=== PATIENT | female | born 1940 | race Caucasian/White ===

== ENCOUNTER → 2019-09-18 15:05 | Outpatient (CLI) | payer MEDICARE, SELFPAY ==
--- NOTE | ~2019-09-18 | MR_ITS ---
EXAMINATION: MR lumbar spine [facility] EXAM DATE: 09/18/2019 15:58 INDICATION: Low back pain, bilateral leg pain, numbness, right side worse. TECHNIQUE: Multi-sequential, multiplanar MR images of the lumbar spine were obtained without contrast . Sagittal T1, T2, T2 fat saturation images. Axial T2 weighted images. Comparison is made to prior examination from 03/14/2017. FINDINGS: L5 and S1 segments are fused in grade 1 anterolisthesis. There is 7 mm anterolisthesis L4 o n L5, 3 mm retrolisthesis L3 on L4 and L2 on L3, 4 mm retrolisthesis L1 on L2, 3 mm anterolisthesis T 11 on T12. There is mild thoracolumbar scoliosis. Moderate to severe disc disease T11-L4, moderate at L4-5. The conus medullaris terminates at the T12 level and has normal signal intensity and morpholog y. Paraspinal soft tissue is unremarkable. Level by level evaluation: T11-12: There is a moderate to large diffuse disc bulge. Facet arthropathy: Moderate to severe right, moderate left. Neural foraminal stenosis: Moderate right, mild to moderate left. Central canal stenosis: Moderate. T12-L1: There is a moderate to large diffuse disc bulge. Facet arthropathy: Mild to moderate. Neural foraminal stenosis: Moderate left, mild right. Central canal stenosis: Mild to moderate. L1-L2: There is a mild to moderate diffuse disc bulge. Facet arthropathy: Mild to moderate. Neural foraminal stenosis: Moderate to severe left, mild to moderate right. Central canal stenosis: Mild to moderate. L2-L3: There is a moderate diffuse disc bulge. Facet arthropathy: Moderate. Neural foraminal stenosis: Moderate bilateral. Central canal stenosis: Mild, probable old right hemilaminectomy. L3-L4: There is a moderate diffuse disc bulge. Facet arthropathy: Moderate to severe. Neural foraminal stenosis: Severe right, moderate left. Central canal stenosis: Mild to moderate, probable old right hemilaminectomy. L4-L5: There is a moderate diffuse disc bulge. Facet arthropathy: Severe. Neural foraminal stenosis: Moderate bilateral, left greater than right. Central canal stenosis: Moderate. L5-S1: Vertebral bodies are fused Facet arthropathy: Mild to moderate. Neural foraminal stenosis: Moderate left, mild to moderate right. Central canal stenosis: Mild. There is slight interval increase in the lumbar subluxations, but otherwise difficult to appreciate a ny interval change compared to 2017 exam. IMPRESSION: Advanced cervical spondylosis. Reviewed, dictated and finalized at location A. GRATION DIRECTOR
== END ==
PROVIDERS: Visit Provider Nurse Practitioner Family
DX: M47.26 Other spondylosis with radiculopathy, lumbar region (principal)
CPT/HCPCS: 72148

== ENCOUNTER → 2020-10-28 12:05 | Outpatient (CLI) | payer MEDICARE, SELFPAY ==
--- NOTE | ~2020-10-28 | MM_ITS ---
EXAMINATION: MM screening [facility] BI w kacey HISTORY: Screening TECHNIQUE: Craniocaudal and mediolateral oblique 3-D tomosynthesis images were obtained and synthetic 2-D images were generated. CAD analysis was submitted and interpreted. COMPARISON: Comparison to multiple prior studies sequentially, with oldest reviewed study dated 04/16. BREAST PARENCHYMAL COMPOSITION: There are scattered areas of fibroglandular density. FINDINGS: There is no evidence of suspicious mass, calcification, or architectural distortion to sugg est malignancy in either breast. There has been no suspicious interval change. IMPRESSION: 1. No mammographic evidence of malignancy. 2. Recommend routine screening mammography in one year. BI-RADS Category 1: Negative Reviewed, dictated and finalized at location A.
--- NOTE | ~2020-10-28 | DEXA_ITS ---
Bone Density Report Name: Amberly Faust Age: 80 Sex: Female Ethnicity: White Date of : 1940 Indication: postmenopausal; screening for osteoporosis; height loss; prior fracture; Referring Provider: MYLA MCCLENDON Study: Bone densitometry was performed. Exam Date: October 28, 2020 Accession number: [id number] Bone Density: Region BMD T-score Z-score Classification AP Spine (L1-L4) 1.013 -0.3 2.3 Normal Femoral Neck (Left) 0.667 -1.6 0.6 Osteopenia Total Hip (Left) 0.962 0.2 2.1 Normal Femoral Neck (Right) 0.583 -2.4 -0.2 Osteopenia Total Hip (Right) 0.895 -0.4 1.6 Normal Total Hip Mean 0.929 -0.1 1.9 Normal World Health Organization criteria for BMD impression classify patients as: Normal (T-score at or above -1.0), Osteopenia (T-score between -1.0 and -2.5), or Osteoporosis (T-score at or below -2.5). 10-year Fracture Risk(1): Major Osteoporotic Fracture 22% Hip Fracture 6.1% Reported Risk Factors: [place] (), Neck BMD=0.583, BMI=38.9, previous fracture (1) FRAX(R) Version 3.08. Fracture probability calculated for an untreated patient. Fracture probability may be lower if the patient has received treatment. Previous Exams: Region Exam Age BMD T-score BMD Change BMD Change Date g/cm2 vs Baseline vs Previous AP Spine(L1-L4) 10/28/2020 80 1.013 -0.3 0.213* 0.073* 03/01/2017 76 0.940 -1.0 0.139* 0.099* 05/13/2012 71 0.841 -1.9 0.040* 0.018 05/12/2010 69 0.823 -2.0 0.022 0.022 05/07/2008 67 0.801 -2.2 Total Hip(Left) 10/28/2020 80 0.962 0.2 -0.061* 0.045* 03/01/2017 76 0.917 -0.2 -0.107* -0.069* 05/13/2012 71 0.986 0.4 -0.038* -0.003 05/12/2010 69 0.989 0.4 -0.034* -0.034* 05/07/2008 67 1.023 0.7 Total Hip(Right) 10/28/2020 80 0.895 -0.4 -0.107* 0.017 03/01/2017 76 0.878 -0.5 -0.124* -0.164* 05/13/2012 71 1.042 0.8 0.040* 0.071* 05/12/2010 69 0.971 0.2 -0.031* -0.031* 05/07/2008 67 1.002 0.5 *Denotes significance at 95% confidence level, LSC for AP Spine = 0.022 g/cm2, LSC for Total Hip = 0.027 g/cm2 Clinical Information Provided by Patient: Has had a low trauma fracture Has used the following medications: Vitamin D, Calcium Patient maximum height was 62 Menopause Age: 49 No regular weight bearin
== END ==
PROVIDERS: PCP Family Medicine; Visit Provider Family Medicine
DX: Z12.31 Encounter for screening mammogram for malignant neoplasm of breast (principal); Z78.0 Asymptomatic menopausal state; M85.89 Other specified disorders of bone density and structure, multiple sites
CPT/HCPCS: 77063; 77067; 77080

== ENCOUNTER 2020-11-06 11:24 | Emergency (ER) | payer MEDICARE, SELFPAY ==
--- NOTE | ~2020-11-06 | US_ITS ---
EXAMINATION: US venous doppler [facility] DATE: 11/06/2020 13:47 INDICATION: Lower limb swelling. TECHNIQUE: Grayscale ultrasound images without and with compression and Doppler ultrasound images of the bilateral lower extremity veins were obtained. COMPARISON: Ultrasound 04/09/2016 FINDINGS: The visualized portions of right common femoral vein, profunda (deep) femoral vein, femoral vein, pop liteal vein, peroneal veins, posterior tibial veins, and greater saphenous vein outflow are patent. The visualized portions of left common femoral vein, profunda femoral vein, femoral vein, popliteal v ein, peroneal veins, posterior tibial veins, and greater saphenous vein outflow are patent. IMPRESSION: 1. No deep venous thrombosis. Reviewed, dictated and finalized at location A.
--- NOTE | ~2020-11-06 | XR_ITS ---
EXAMINATION: XR chest 1V DATE: 11/06/2020 12:40 INDICATION: Shortness of breath. TECHNIQUE: A single frontal view of the chest was obtained. COMPARISON: Chest 2 views 06/01/2019 FINDINGS: There is mild atelectasis at the lung bases. No pleural effusion or pneumothorax. The heart size is normal. IMPRESSION: 1. Mild atelectasis at the lung bases. Reviewed, dictated and finalized at location A.
--- NOTE | ~2020-11-06 | XR_ITS ---
EXAMINATION: XR shoulder LT min 2V DATE: 11/06/2020 12:39 INDICATION: Left shoulder pain. TECHNIQUE: 4 views of left shoulder were obtained. COMPARISON: None. FINDINGS: There is superior subluxation of humeral head with respect to glenoid with narrowing of the subacromial space, consistent with rotator cuff tear. No fracture. There is moderate osteoarthritis of glenohumeral joint and mild osteoarthritis of acromioclavicular joint. IMPRESSION: 1. Polyarticular osteoarthritis. 2. Left rotator cuff tear. Reviewed, dictated and finalized at location A.
--- NOTE | ~2020-11-06 | CT_ITS ---
EXAMINATION: CTA chest PE protocol DATE: 11/06/2020 13:29 INDICATION: Left posterior back pain. TECHNIQUE: Computed tomography angiography (CTA) of the chest was performed with 100 mL Omnipaque-350 intravenous contrast timed to evaluate the pulmonary arteries. Coronal maximum intensity projection 3D-reconstructions were created by the technologist. Automated exposure control and iterative reconst ruction technique were employed. The dose-length product was 719.18 mGy-cm. COMPARISON: CT abdomen and pelvis 04/30/2016 FINDINGS: There is mild elevation of right hemidiaphragm. There is mild atelectasis in right middle l obe and lingula. No pleural effusion. No pleural effusion. The heart size is normal. No pericardial e ffusion. There is no pulmonary embolus. There is severe thoracic spondylosis. IMPRESSION: 1. No pulmonary embolus. Reviewed, dictated and finalized at location A. IMPRESSION: 1. No pulmonary embolus.
[2020-11-06 11:29] VITALS: BP 168/87; PULSE 106; RESP 18; TEMP 36.5; O2SAT 97
--- NOTE | 2020-11-06 11:46 | ED.GENADULT ---
HPI - General Adult General Chief complaint: Extremity Injury, Upper Stated complaint: left arm and back pain with SOB Time Seen by Provider: 11/06/20 11:25 Source: patient Mode of arrival: ambulatory Limitations: no limitations History of Present Illness HPI narrative: This is a 80 year old female with history of hypertension, chronic low back pain and neuropathy who presents for evaluation left upper back pain. Patient states she fell on Saturday, and she caught her fall using her left arm. She denies left upper back pain on Saturday. Her pain is worse with movement of her arm and laying flat. She states she is unable to sleep in her bed since Saturday due to her pain. She has noticed that both her feet have been swollen since yesterday. She has intermittent shortness of breath because pain is worse with breathing as well. She denies abdominal pain, nausea or vomiting. She denies arm numbness or weakness. She took gabapentin prior to coming and she states this helped her pain. Pain is currently 5/10. She denies hitting her head during fall or LOC. She also denies neck pain, chest pain. Related Data Home Medications Medication Instructions Recorded Confirmed duloxetine 60 mg capsule,delayed 60 mg PO DAILY 06/01/19 07/18/20 release gabapentin 600 mg tablet 600 mg PO TID 06/01/19 07/18/20 diclofenac sodium 50 mg 50 mg PO BID 05/16/20 07/18/20 tablet,delayed release Allergies Allergy/AdvReac Type Severity Reaction Status Date / Time sulfamethizole Allergy Unknown unknown Verified 11/06/20 11:33 Review of Systems Review of Systems: All systems reviewed & are unremarkable except as noted in HPI and below PMFSH Past Medical History Medical History Hypertension Mixed hyperlipidemia Normal colonoscopy (~2008) Osteopenia of spine Spinal stenosis, lumbar Vitamin B12 deficiency Vitamin D deficiency Surgical History Surgical History History of appendectomy Family History Family History Mother Hypertension Family history of elevated blood lipids Family history of diabetes mellitus in first degree relative Social History Social History Smoking status: Never smoker Second hand tobacco smoke exposure: No Alcohol intake: never Gender identity (if verbalized by the patient): Female Exam Const: General: no acute distress and alert Orientation/consciousness: patient oriented x3 HENMT: Head: normocephalic and atraumatic Face and sinus: face symmetric Eyes: EOM: EOMs intact bilaterally Neck: Neck: normal visual inspection Chest: Chest palpation & inspection: normal inspection of the chest and abnormal inspection of the chest Resp: Effort & Inspection: normal respiratory effort and no retractions Auscultation: clear to auscultation bilaterally Cardio: Rate: regular rate Rhythm: regular rhythm Heart sounds: no murmurs Other: palpable bilateral radial pulses GI: GI Palp: Yes Soft to palpation, No Tenderness to palpation present (GI) and No Guarding due to palpation present (GI) Auscultation: normal bowel sounds Back/Spine/Pelvis: Cervical Spine: No Cervical spine tenderness Thoracic/Lumbar Spine: No thoracic spinal tenderness Skin: General skin exam: normal color Rashes: no rashes Neuro: General: patient oriented x3, moves all extremities and CN's II-XI intact bilaterally Extrem: General: normal to inspection Psych: Mental Status: mental status grossly normal Affect: normal affect Course Reevaluation(s) Reevaluation #1: I have discussed with patient xray showing rotator cuff tear. She states sees Dr. Castillo, and she has had issues with both shoulders. It is unclear if this rotator cuff tear is new. She will see Dr. Castillo. I Discussed evaluation and
--- NOTE | 2020-11-06 11:55 | ECG_ITS ---
Measurements Intervals [place] Rate: 102 P: 50 TX: 207 QRS: 20 QRSD: 122 T: -17 QT: 342 QTc: 446 Interpretive Statements SINUS TACHYCARDIA BORDERLINE AV CONDUCTION DELAY RIGHT BUNDLE BRANCH BLOCK MINIMAL Q WAVES- INFERIOR LEADS BASELINE ARTIFACT- II, III, AVR, AVL, AVF, V5-V6 ABNORMAL ECG Electronically Signed On 11-06-2020 12:26:06 CDT by Rhys Arango D.O.
[2020-11-06 11:57] LABS: Basophils Percent Auto 0.3 % (0.2-1.2); Eosinophils Absolute Auto 0.3 K/mm3 (0-0.3); Hematocrit 39.1 % (37.0-47.0); Hemoglobin 12.1 g/dL (12.0-15.0); Immature Granulocyte Absolute 0.04 K/mm3 (0.00-0.031); Immature Granulocyte Percent A 0.6 % (0-0.5); Lymphocytes Absolute Auto 1.23 K/mm3 (0.9-3.2); Lymphocytes Percent Auto 18.1 % (18.3-44.2); Mean Corpuscular HGB Conc 30.9 g/dl (32-36); Mean Corpuscular Hemoglobin 29.1 pg (26-34); Mean Platelet Volume 9.6 fl (7.4-10.4); Monocytes Absolute Auto 0.6 K/mm3 (0.1-0.6); Monocytes Percent Auto 9.4 % (2.6-8.5); Neutrophils Absolute Auto 4.6 K/mm3 (1.3-6.7); Neutrophils Percent Auto 67.6 % (45.5-73.1); Platelet Count Result 271 k/mm3 (150-375); Red Blood Count 4.16 M/mm3 (4.2-5.4); Red Cell Distribution Width 13.1 % (11.5-14.5); White Blood Count 6.8 K/mm3 (4.5-10.0)
[2020-11-06 12:07] LABS: Alanine Aminotransferase 21 U/L (4-35); Albumin Level 4.5 g/dL (3.5-5.1); Alkaline Phosphatase 124 U/L (38-126); Anion Gap 4 mmol/L (8-16); Aspartate Amino Transferase 30 U/L (14-36); Bilirubin,Total 0.2 mg/dL (0.2-1.3); Blood Urea Nitrogen 21 mg/dL (7-17); Calcium 9.3 mg/dL (8.4-10.2); Carbon Dioxide 31 mmol/L (22-30); Chloride 103 mmol/L (98-107); Estimated CRCL calculation 58 ml/min; Estimated Glomerular Filt Rate > 60; Glucose 130 mg/dL (65-105); Potassium 4.1 mmol/L (3.4-5.0); Sodium 138 mmol/L (137-145)
[2020-11-06 12:08] LABS: INR 0.9; Prothrombin Time 12.5 Seconds (11.1-14.7)
[2020-11-06 12:09] LABS: Partial Thromboplastin Time 26.3 SECONDS (22.3-36.8)
[2020-11-06 12:11] LABS: D Dimer 0.52 ug/mL (<0.48)
[2020-11-06 12:18] LABS: Alveolar/Arterial O2 Gradient 23.2 mmHg; Base Excess ABG -1.1 mEq/l (+/-2.0); Carboxyhemoglobin 0.5 % THb (0-2.0); Fractional Inspired Oxygen 21 %; HCO3 ABG 24.6 mEq/l (22.0-26.0); Methemoglobin ABG 0.1 %THb (0-1.5); Oxygen Content ABG 16.6 %vol (16.0-22.0); Oxygen Saturation ABG 93.9 % (95.0-100.0); Oxyhemoglobin 93.5 % THb (90.0-100.0); PO2 ABG 72.6 mmHg (80.0-100.0); PO2 FiO2 Ratio Arterial Blood 3.46 %; Reduced Hemoglobin 5.9 %THb (0-5.0); Total Hemoglobin 12.6 g/dL (12.0-18.0); pH ABG 7.355 (7.350-7.450)
[2020-11-06 12:19] LABS: Device ROOM AIR; NT Pro B Type Natriuretic Pept 54 pg/mL (5-100); Site Drawn RIGHT BRACHIAL; Troponin I < 0.012 ng/mL (0.000-0.034)
[2020-11-06 13:52] VITALS: BP 125/68; PULSE 108; RESP 19; O2SAT 98
[2020-11-06 14:24] VITALS: BP 137/84; PULSE 108; RESP 22; O2SAT 98
== END 2020-11-06 14:36 | disposition home or self-care (01) ==
PROVIDERS: Emergency Provider General Practice; PCP Family Medicine
DX: S46.002A Unspecified injury of muscle(s) and tendon(s) of the rotator cuff of left shoulder, initial encounter (principal); R60.0 Localized edema; R06.00 Dyspnea, unspecified; I10 Essential (primary) hypertension; E78.2 Mixed hyperlipidemia; E53.8 Deficiency of other specified B group vitamins; E55.9 Vitamin D deficiency, unspecified; M85.88 Other specified disorders of bone density and structure, other site; R00.0 Tachycardia, unspecified; I45.10 Unspecified right bundle-branch block; R94.31 Abnormal electrocardiogram [ECG] [EKG]; M19.012 Primary osteoarthritis, left shoulder; R06.02 Shortness of breath; W19.XXXA Unspecified fall, initial encounter
CPT/HCPCS: 36415; 36600; 71045; 71275; 73030; 80053; 82375; 82805; 83050; 83880; 84484; 85025; 85380; 85610; 85730; 93005; 93970; 99284; A4565; Q9967

== ENCOUNTER 2021-02-16 08:59 | Outpatient (CLI) | payer MEDICARE, SELFPAY ==
--- NOTE | 2021-03-14 18:07 | WPDSLEEPSTUD ---
Sleep Study Date of Study: 02/16/21 Ordering Provider: Vanesa Carpenter MD Interpreting Physician: Latoya Sanderson MD Sleep Study Type: Split Polysomnogram Height: 1.56 m Weight: 88.451 kg Body Mass Index: 36.2 Neck Circumference (inches): 17 Coffey: 13 Reason for Sleep Study Hypersomnia * home sleep test 01/25/2021 using Tito with AHI 9.8, 44% centrals, 38% obstructive and 7% mixed, now presents for further treatment Sleep History Amberly Faust is a 80 year old female with a home sleep test January 25 showing mild sleep apnea mainly central events with desaturation to 86%. She is chronically sleepy and does not feel rested in the morning. She falls asleep quickly and falls asleep while watching TV. She estimates 8 hours of sleep at night and a 2 hour nap during the day. She was referred by Dr Carpenter for these symptoms. She rarely snores and rarely awakens at night with heartburn, belching or coughing. She does not snore loudly. She does not awaken from sleep feeling short of breath. She occasionally has trouble sleeping with a cold. She never gasp for breath at night or has breathing problems at night reported to her by others. She occasionally sweats excessively at night. She does not notice her heart pounding or beating irregularly at night. She frequently falls asleep during the day, occasionally involuntarily, never while driving. She does not have loss of muscle tone with strong emotion or daytime difficulties due to excessive sleepiness. She does not feel paralyzed on waking or falling asleep and does not have vivid dreamlike scenes upon awakening or falling asleep. She does not feel afraid to go to sleep. She does not have nightmares. She frequently remembers her dreams. She rarely has racing thoughts, feelings of sadness, depression or anxiety. She does not have muscular tension. She does not notice parts of her body jerking. She does not kick at night. She frequently has crawling aching feelings in her legs. She occasionally has leg pain at night. She denies morning jaw pain. She frequently grinds her teeth at night. She constantly is bothered by pain during the day, occasionally awakened by pain at night. She frequently wakes up feeling stiff in the morning, occasionally with sore achy muscles occasionally pain in the neck and spine. She takes naps. A short nap may be refreshing. Normal bedtime is 11:00 p.m. falling asleep within 10 minutes, waking twice at night to urinate, and she returns to sleep within 10 minutes. She wakes the morning at 8:30 a.m.. She estimates getting 8 or 9 hours of sleep at night. She always awakens feeling refreshed. Her weekend schedule is close to the same, goes to bed at 11:30 p.m. and wakes at 7:00 a.m.. Habits: Never smoker, 2 cups of caffeine a day; no recreational drugs or alcohol PMFSH Past Medical History Medical History (Updated 03/15/21 @ 13:34 by Latoya Sanderson MD) Chronic renal insufficiency, stage III (moderate) Edema Hypertension Left shoulder pain Mixed hyperlipidemia Normal colonoscopy (~2008) Osteopenia of spine Spinal stenosis, lumbar Vitamin B12 deficiency Vitamin D deficiency Surgical History Surgical History History of appendectomy Family History Family History Mother Hypertension Family history of elevated blood lipids Family history of diabetes mellitus in first degree relative Social History Social History Second hand tobacco smoke exposure: No Alcohol intake: never Gender identity (if verbalized by the patient): Female Spiritual care concerns: Yes ( Orthodoxy) Agree to blood products: No Medications Home Medications Medication Instructions Recorded Confirmed Type duloxetine 60 mg capsule,delayed 60 mg PO DAILY 06/01/19 11/24/20 History release
[2021-03-15 13:24] VITALS: BMI 36.2
== END 2021-02-17 06:17 | disposition home or self-care (01) ==
LOC: ANHCSM 09:01
PROVIDERS: PCP Family Medicine; Visit Provider Family Medicine
DX: G47.30 Sleep apnea, unspecified (principal); G47.33 Obstructive sleep apnea (adult) (pediatric); G47.61 Periodic limb movement disorder
CPT/HCPCS: 95811

== ENCOUNTER 2021-03-09 12:39 | Emergency (ER) | payer MEDICARE, SELFPAY ==
--- NOTE | ~2021-03-09 | XR_ITS ---
EXAMINATION: XR ribs RT 2V w CXR 2V EXAM DATE: 03/09/2021 13:20 INDICATION: Fall, pain under right breast with inspiration. TECHNIQUE: Frontal projection of the upper right ribs, frontal projection of the lower right ribs, ob lique projection of the right ribs, frontal and lateral chest x-ray(s) for interpretation. Comparison is made to prior examination from 11/06/2020. FINDINGS: There are no displaced acute right rib fractures identified. There is no soft tissue abno rmality seen. No confluent consolidation, pneumothorax or pleural effusion suspected. Cardiomediastin al silhouette is normal. 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 Mild to moderate thoracolumbar scoliosis. IMPRESSION: No displaced right rib fractures. Reviewed, dictated and finalized at location A.
[2021-03-09 12:40] VITALS: BP 165/101; PULSE 98; RESP 16; TEMP 36.6; O2SAT 100
--- NOTE | 2021-03-09 13:43 | ED.FALL ---
HPI - Fall General Chief Complaint: Fall Stated Complaint: Fall, Right Ribs Time Seen by Provider: 03/09/21 13:17 History of Present Illness HPI Narrative: This is a 80 year old female that presents to the ER after a fall 3 days ago. Reports she was bending over to reach her garden hose and lost her balance. She fell onto her right side. Since she has had right-sided rib pain. Worse with movement and deep breathing. Denies prodromal symptoms, hitting her head, loss of consciousness, other injuries, fever, cough or shortness of breath. Related Data Home Medications Medication Instructions Recorded Confirmed duloxetine 60 mg capsule,delayed 60 mg PO DAILY 06/01/19 11/24/20 release gabapentin 600 mg tablet 600 mg PO TID 06/01/19 11/24/20 acetaminophen 500 mg tablet 500 mg PO Q6H PRN 11/24/20 11/24/20 diclofenac sodium PO 03/09/21 Allergies Allergy/AdvReac Type Severity Reaction Status Date / Time sulfamethizole Allergy Unknown unknown Verified 03/09/21 12:55 Review of Systems Review of Systems: CONSTITUTIONAL: Denies fever EYES: Denies visual changes CARDIOVASCULAR: Reports chest/rib pain RESPIRATORY: Denies cough or dyspnea. GASTROINTESTINAL: Denies vomiting MUSCULOSKELETAL: Reports myalgia. NEUROLOGIC: Denies numbness, or weakness. All systems reviewed & are unremarkable except as noted in HPI and below PMFSH Past Medical History Medical History (Updated 03/09/21 @ 14:34 by Brina Teague PA-C) Chronic renal insufficiency, stage III (moderate) Edema Hypertension Left shoulder pain Mixed hyperlipidemia Normal colonoscopy (~2008) Osteopenia of spine Spinal stenosis, lumbar Vitamin B12 deficiency Vitamin D deficiency Surgical History Surgical History History of appendectomy Family History Family History Mother Hypertension Family history of elevated blood lipids Family history of diabetes mellitus in first degree relative Social History Social History Second hand tobacco smoke exposure: No Alcohol intake: never Gender identity (if verbalized by the patient): Female Spiritual care concerns: Yes ( Spiritism) Agree to blood products: No Exam Narrative: GENERAL: Elderly, well-nourished, and in no acute distress. HEAD: Normocephalic, atraumatic. EYES: PERRLA and EOMI. ENT: Nares clear, no rhinorrhea or epistaxis. Mucous membranes moist. Oropharynx without tonsillar hypertrophy exudate or other lesions. Bilateral TMs pearly steele non-bulging NECK: Supple. No adenopathy or masses. No midline cervical spine tenderness CHEST: Clear to auscultation. No respiratory distress. No wheezes rales or rhonchi. Right, anterior chest wall tenderness HEART: Regular rate and rhythm. No murmur heard. Normal peripheral pulses. BACK: No midline thoracic or lumbar spine tenderness EXTREMITIES: Normal range of motion. No edema or obvious deformity. SKIN: Warm, dry, no rash. NEURO: No focal deficits. Alert and oriented x3. Cranial nerves II through XII grossly intact PSYCH: Normal mood and affect Course Vital Signs Vital signs: Vital Signs Temperature 97.9 F 03/09/21 12:40 Pulse Rate 98 03/09/21 12:40 Respiratory Rate 16 03/09/21 12:40 Blood Pressure 165/101 H 03/09/21 12:40 Pulse Oximetry 100 03/09/21 12:40 Temperature 97.9 F 03/09/21 12:40 Pulse Rate 98 03/09/21 12:40 Respiratory Rate 16 03/09/21 12:40 Blood Pressure 165/101 H 03/09/21 12:40 Pulse Oximetry 100 03/09/21 12:40 MDM - Fall MDM Narrative Medical decision making narrative: Patient presents to the emergency department after a ground-level fall 3 days ago with right-sided rib pain. She is neurologically intact. Denies prodromal symptoms, hitting her head, loss of consciousness, or other injuries. Able to ambulate with a steady
== END 2021-03-09 14:45 | disposition home or self-care (01) ==
PROVIDERS: Emergency Provider Emergency Medicine; PCP Family Medicine
DX: S20.211A Contusion of right front wall of thorax, initial encounter (principal); I12.9 Hypertensive chronic kidney disease with stage 1 through stage 4 chronic kidney disease, or unspecified chronic kidney disease; N18.30 Chronic kidney disease, stage 3 unspecified; E78.2 Mixed hyperlipidemia; M85.88 Other specified disorders of bone density and structure, other site; E53.8 Deficiency of other specified B group vitamins; E55.9 Vitamin D deficiency, unspecified; W18.39XA Other fall on same level, initial encounter
CPT/HCPCS: 71046; 71100; 99283

== ENCOUNTER → 2021-08-02 09:09 | Outpatient (CLI) | payer MEDICARE, SELFPAY ==
[2021-08-02 13:45] LABS: Influenza A QL RT-PCR Negative (Negative); Influenza B QL RT-PCR Negative (Negative); SARS-CoV-2 RNA PCR Positive
== END ==
PROVIDERS: PCP Family Medicine; Visit Provider Family Medicine
DX: U07.1 COVID-19 (principal); J06.9 Acute upper respiratory infection, unspecified
CPT/HCPCS: 87502; C9803; U0003; U0005

== ENCOUNTER → 2021-10-10 12:11 | Outpatient (CLI) | payer MEDICARE, SELFPAY ==
--- NOTE | ~2021-10-10 | XR_ITS ---
EXAMINATION: XR shoulder LT min 2V DATE: 10/10/2021 12:32 INDICATION: Left shoulder pain. TECHNIQUE: 4 views of left shoulder were obtained. COMPARISON: Left shoulder radiographs 11/06/2020 FINDINGS: There is chronic superior subluxation of humeral head with narrowing of the subacromial spa ce, consistent with rotator cuff tear. There is severe osteoarthritis of glenohumeral joint and mild osteoarthritis of acromioclavicular joint. IMPRESSION: 1. Severe glenohumeral joint osteoarthritis. 2. Chronic left rotator cuff tear. Reviewed, dictated and finalized at location A.
== END ==
PROVIDERS: Visit Provider Nurse Practitioner Family
DX: M25.512 Pain in left shoulder (principal); M19.012 Primary osteoarthritis, left shoulder; M75.102 Unspecified rotator cuff tear or rupture of left shoulder, not specified as traumatic
CPT/HCPCS: 73030

== ENCOUNTER 2021-10-17 08:17 | Outpatient (CLI) | payer MEDICARE, SELFPAY ==
--- NOTE | 2021-10-17 16:14 | WPDSIXMINUTE ---
Six Minute Walk Procedure Procedure Performed Pulmonary Stress Test (6 min walk) Six Minute Walk This is a 6 minute walk test. The test was performed and interpreted in accordance with the 2014 ERS/ATS task force guidelines. Findings: The patient's resting room air oxygen saturation measured by pulse oximetry was 93% and heart rate was 96 bpm. Patient ambulated for 198 meters and oxygen saturation remained 90 to 94%. Heart rate at the end of the study was 108 bpm. The patient did not qualify for supplemental oxygen at rest or with ambulation. There are no prior studies for comparison.
--- NOTE | 2021-10-17 16:15 | WPDPFTINT ---
PFT Procedure Performed PFT Procedure Performed Spirometry with Pre/Post Bronchodilator Plethysmography (Lung Vol) Diffusing Cap (DLCO) Flow Vol Loop PFT Interpretation This is a pulmonary function test with pre and post-bronchodilator spirometry, plethysmography and diffusing capacity. The test was performed and results interpreted in accordance with the 2019 and 2005 ATS/ERS Task Force guidelines respectively using the Global Lung Function Initiative-2012 reference equations. Patient demonstrated good effort and cooperation. Reproducibility criteria were met. The quality of the pre bronchodilator spirometry maneuver was Grade A and post bronchodilator spirometry maneuver was Grade A. Findings: Spirometry: The contour the inspiratory and expiratory flow tracing are normal. The pre bronchodilator FVC is 1.89 L, 82% predicted. The pre bronchodilator FEV1 is 1.37 L, 77% predicted. The pre bronchodilator FEV1: FVC ratio 73%. The post bronchodilator FVC is 1.93 L, representing a 2% increase. The post bronchodilator FEV1 is 1.45 L, representing a 5% increase. The post bronchodilator FEV1: FVC ratio is 75%. Plethysmography: The total lung capacity is 3.58 L, 78% predicted. The functional residual capacity is 2.02 L, 76% predicted. The residual volume is 1.64 L, 74% predicted. Diffusing capacity: Diffusing capacity unadjusted for hemoglobin and carboxyhemoglobin is 16.2, 89% predicted. The diffusing capacity adjusted for alveolar volume is 5.18, 121% predicted. Impression: The spirometry is normal without evidence of an obstructive abnormality. There is no significant improvement after inhaling a single dose of albuterol. The lung volumes are normal. The diffusing capacity is normal. There are no prior studies for comparison
== END 2021-10-17 08:18 | disposition home or self-care (01) ==
PROVIDERS: PCP Family Medicine; Visit Provider Internal Medicine Critical Care Medicine
DX: R06.02 Shortness of breath (principal)
CPT/HCPCS: 94060; 94618; 94726; 94729

== ENCOUNTER → 2021-10-19 10:08 | Outpatient (CLI) | payer MEDICARE, SELFPAY ==
--- NOTE | ~2021-10-19 | MR_ITS ---
EXAMINATION: MR lumbar spine wo con DATE: 10/19/2021 10:49 INDICATION: Lumbar radiculopathy. TECHNIQUE: Magnetic resonance imaging (MRI) of the lumbar spine was performed without intravenous con trast. Sequences included sagittal T2-weighted FSE, sagittal T2-weighted FS FSE, sagittal T1-weighted FSE, and axial T2-weighted FSE. COMPARISON: Lumbar spine MRI 09/18/2019 FINDINGS: There is 17 degrees dextroscoliosis of thoracolumbar spine. There are chronic bilateral L5 pars defects. There is 4 mm anterolisthesis of T11 on T12, 3 mm retrolisthesis of T12 on L1, L1 on L2 , and L2 on L3, 7 mm anterolisthesis of L4 on L5, and 10 mm anterolisthesis of L5 on S1. There is sev erely decreased disc height from T11-T12 through L3-L4 and mildly decreased disc height at L4-L5 with endplate remodeling. There is severely decreased disc height at L5-S1 with interbody fusion. The dis alicja spinal cord signal intensity is normal. The conus medullaris is at T12. There is Baastrup disease from L2-L3 through L4-L5. The following disc levels are specifically discussed: L1-L2: The disc is bulging with superimposed left central and foraminal zone extrusion. There is nicholas re bilateral facet joint osteoarthritis. There is mild right and moderate left neural foraminal steno sis. There is mild central canal stenosis. L2-L3: The disc is bulging and has an annular fissure. There is severe bilateral facet joint osteoart hritis. There is moderate bilateral neural foraminal stenosis. There is mild central canal stenosis. L3-L4: The disc is bulging and has an annular fissure. There is severe bilateral facet joint osteoart hritis. There is moderate bilateral neural foraminal stenosis. There is mild central canal stenosis. L4-L5: The disc is bulging and has an annular fissure. There is severe bilateral facet joint osteoart hritis. There is moderate bilateral neural foraminal stenosis. There is mild central canal stenosis. There is severe stenosis of right lateral recess and moderate stenosis of left lateral recess. L5-S1: The disc does not extend beyond the endplate margin. There is moderate bilateral facet joint o steoarthritis. There is mild bilateral neural foraminal stenosis. There is no central canal stenosis. IMPRESSION: 1. Severe lumbar spondylosis, stable from 09/18/2019. 2. Thoracolumbar dextroscoliosis. Reviewed, dictated and finalized at location A.
== END ==
PROVIDERS: PCP Family Medicine; Visit Provider Nurse Practitioner Family
DX: M54.16 Radiculopathy, lumbar region (principal); M47.816 Spondylosis without myelopathy or radiculopathy, lumbar region; M41.85 Other forms of scoliosis, thoracolumbar region
CPT/HCPCS: 72148

== ENCOUNTER → 2022-01-23 13:56 | Outpatient (CLI) | payer MEDICARE, SELFPAY ==
--- NOTE | ~2022-01-23 | MM_ITS ---
EXAMINATION: MM screening [facility] BI w kacey HISTORY: Screening mammogram TECHNIQUE: Craniocaudal and mediolateral oblique 3-D tomosynthesis images were obtained and synthetic 2-D images were generated. CAD analysis was submitted and interpreted. COMPARISON: 10/28/2020, 05/20/2018, 07/22/2015 BREAST PARENCHYMAL COMPOSITION: The breasts are almost entirely fatty. FINDINGS: There is no suspicious mass, calcification, or architectural distortion to suggest malignan cy in either breast. There has been no suspicious interval change. IMPRESSION: 1. No mammographic evidence of malignancy. 2. Recommend routine screening mammography in one year. BI-RADS Category 1: Negative Reviewed, dictated and finalized at location A.
== END ==
PROVIDERS: PCP Family Medicine; Visit Provider Family Medicine
DX: Z12.31 Encounter for screening mammogram for malignant neoplasm of breast (principal)
CPT/HCPCS: 77063; 77067

== ENCOUNTER → 2022-09-03 12:34 | Outpatient (CLI) | payer MEDICARE, SELFPAY ==
--- NOTE | ~2022-09-03 | XR_ITS ---
EXAMINATION: XR chest 2V 09/03/2022 12:52 INDICATION: Cough PROCEDURE: 2 view chest COMPARISON: Comparison to multiple prior studies sequentially, with oldest reviewed study dated 09/02/2018. FINDINGS: The lungs are clear. The cardiomediastinal silhouette is within normal limits. There are no pleural effusions. There is no pneumothorax suspected. IMPRESSION: 1: NO ACUTE CARDIOPULMONARY DISEASE. Reviewed, dictated and finalized at location B. ACCOUNTS CLERK
== END ==
PROVIDERS: PCP Family Medicine; Visit Provider Physician Assistant Medical
DX: R05.9 Cough, unspecified (principal)
CPT/HCPCS: 71046

== ENCOUNTER 2022-09-06 13:51 | Outpatient (CLI) | payer MEDICARE, SELFPAY ==
--- NOTE | ~2022-09-06 | CT_ITS ---
EXAMINATION:CT diagnostic chest w con DATE: 09/06/2022 14:50 INDICATION: Chronic cough. TECHNIQUE: Computed tomography (CT) of the chest was performed with 75 mL Omnipaque 350 intravenous c ontrast. Automated exposure control and iterative reconstruction technique were employed. The dose-le ngth product (DLP) was 521.29 mGy-cm. COMPARISON: Chest CT 11/06/2020 FINDINGS: There is chronic eventration of anterior right hemidiaphragm. There is mild atelectasis pete aterally. No pleural effusion. The heart size is normal. No pericardial effusion. There is a 1.7 cm m ass in right adrenal gland. There is a 1.4 cm mass in left adrenal gland. These findings are unchange d from 11/06/2020, consistent with adenomas. There is severe thoracic spondylosis. IMPRESSION: 1. No etiology for the patient's symptoms. Reviewed, dictated and finalized at location A. TIAN BLIND CLEANER AND REPAIRER
[2022-09-06 14:43] LABS: Estimated Glomerular Filt Rate > 60
== END 2022-09-06 13:52 | disposition home or self-care (01) ==
PROVIDERS: PCP Family Medicine; Visit Provider Family Medicine
DX: R05.9 Cough, unspecified (principal)
CPT/HCPCS: 71260; Q9967

== ENCOUNTER 2022-09-13 12:35 | Outpatient (CLI) | payer MEDICARE, SELFPAY ==
--- NOTE | 2022-09-13 12:48 | ECHO_ITS ---
Patient Info Name: Ambrely Faust Age: 81 years : 1940 Gender: Female Ht: 60 in Wt: 195 lbs BSA: 1.98 m2 HR: 95 bpm BP: 146 / 88 mmHg Technical Quality: Fair Exam Date: 09/13/2022 12:59 PM Exam Location: [facility] Patient Status: Outpatient Admit Date: 09/13/2022 Staff Ordering Physician: Vanesa Carpenter MD Chip Bin Conveyor Tender: Alyssa De León RDCS Attending Provider: Vanesa Carpenter MD Referring Physician: Jayden CAMPBELL; Exam Type: CA echo doppler color flow Study Info Indications R01.1 - Cardiac murmur, unspecified Complete two-dimensional, color flow and Doppler transthoracic echocardiogram is performed. Summary 1. Complete two-dimensional, color flow and Doppler transthoracic echocardiogram is performed. 2. Left ventricular chamber dimension is normal. 3. Ventricular septum is sigmoid shaped. Resting LVOT with mild obstruction at mean gradient of 7 mmHg suggesting hypertrophic cardiomyopathy. 4. Left ventricular systolic function is normal, estimated at 60-65%. 5. The left ventricular diastolic function is grade I diastolic dysfunction. 6. E/e' 6 is not elevated. 7. Global longitudinal strain is normal at -17.5%. 8. There is mild aortic valve sclerosis. 9. Moderate Non-obstructive systolic anterior motion of the mitral leaflet. 10. No pulmonary hypertension, estimated pulmonary arterial systolic pressure is 29 mmHg. Left Ventricle E/e' 6 is not elevated. Global longitudinal strain is normal at -17.5%. Ventricular septum is sigmoid shaped. Resting LVOT with mild obstruction at mean gradient of 7 mmHg suggesting hypertrophic cardiomyopathy. Left ventricular chamber dimension is normal. Left ventricular systolic function is normal, estimated at 60-65%. The left ventricular diastolic function is grade I diastolic dysfunction. Right Ventricle Right ventricular systolic function is normal and with normal TAPSE 1.9 cm. Right ventricular chamber dimension is normal. Left Atria Left atrial chamber dimension is normal. Right Atria Right atrial chamber dimension is normal. Aortic Valve The aortic valve is trileaflet. There is mild aortic valve sclerosis. There is no aortic valve stenosis. There is no aortic valve regurgitation. Pulmonic Valve There is no pulmonic regurgitation. Mitral Valve Moderate Non-obstructive systolic anterior motion of the mitral leaflet. There is no mitral valve stenosis. There is no mitral valve regurgitation. Tricuspid Valve There is no tricuspid valve regurgitation. No pulmonary hypertension, estimated pulmonary arterial systolic pressure is 29 mmHg. Pericardium/Pleural There is no pericardial effusion. Inferior Vena Cava Normal inferior vena cava with >50% collapse upon inspiration consistent with normal right atrial pressure, 5 mmHg. Aorta The aortic root size at the sinus of Valsalva is normal. Left Ventricular Outflow Tract Name Value Normal LVOT 2D LVOT Diameter 1.9 cm LVOT Doppler LVOT Peak Gradient 10 mmHg LVOT Mean Gradient 5 mmHg LVOT VTI 32 cm
== END 2022-09-13 12:36 | disposition home or self-care (01) ==
PROVIDERS: PCP Family Medicine; Visit Provider Family Medicine
DX: R01.1 Cardiac murmur, unspecified (principal); I08.0 Rheumatic disorders of both mitral and aortic valves
CPT/HCPCS: 93306

== ENCOUNTER 2023-09-11 09:45 | Outpatient (CLI) | payer MEDICARE, SELFPAY ==
--- NOTE | 2023-09-11 09:49 | ECHO_ITS ---
Patient Info Name: Amberly Faust Age: 82 years : 1940 Gender: Female Ht: 61 in Wt: 190 lbs BSA: 1.97 m2 HR: 90 bpm BP: 128 / 72 mmHg Technical Quality: Fair Exam Date: 09/11/2023 10:00 AM Exam Location: [facility] Patient Status: Outpatient Admit Date: 09/11/2023 Staff Ordering Physician: Rhys Arango DO Magician/Illusionist: Attending Provider: Rhys Arango DO Referring Physician: Nba RAE; Exam Type: CA echo doppler color flow Study Info Indications I42.1 - Obstructive hypertrophic cardiomyopathy Complete two-dimensional, color flow and Doppler transthoracic echocardiogram is performed. Summary 1. Complete two-dimensional, color flow and Doppler transthoracic echocardiogram is performed. 2. Left ventricular chamber dimension is normal. 3. Ventricular septum is sigmoid shaped measured at 1.7 cm, consider hypertrophic cardiomyopathy. No resting LVOT obstruction. 4. There is mild concentric increased left ventricular wall thickness. 5. Left ventricular systolic function is normal, estimated at 65-70%. 6. The left ventricular diastolic function is grade I diastolic dysfunction. 7. E/e' 7 is not elevated. 8. Left atrial chamber dimension is mildly enlarged. 9. Mild systolic anterior motion of mitral valve. 10. There is trace tricuspid valve regurgitation. 11. No pulmonary hypertension, estimated pulmonary arterial systolic pressure is 25 mmHg. Left Ventricle E/e' 7 is not elevated. Ventricular septum is sigmoid shaped measured at 1.7 cm, consider hypertrophic cardiomyopathy. No resting LVOT obstruction. Left ventricular chamber dimension is normal. Left ventricular systolic function is normal, estimated at 65-70%. There is mild concentric increased left ventricular wall thickness. The left ventricular diastolic function is grade I diastolic dysfunction. Right Ventricle Right ventricular systolic function is normal and with normal TAPSE 2.0 cm. Right ventricular chamber dimension is normal. Left Atria Left atrial chamber dimension is mildly enlarged. Right Atria Right atrial chamber dimension is normal. Aortic Valve The aortic valve is trileaflet. There is no aortic valve stenosis. There is no aortic valve regurgitation. Pulmonic Valve There is no pulmonic regurgitation. Mitral Valve Mild systolic anterior motion of mitral valve. There is no mitral valve stenosis. There is no mitral valve regurgitation. Tricuspid Valve There is trace tricuspid valve regurgitation. No pulmonary hypertension, estimated pulmonary arterial systolic pressure is 25 mmHg. Pericardium/Pleural There is no pericardial effusion. Inferior Vena Cava Normal inferior vena cava with >50% collapse upon inspiration consistent with normal right atrial pressure, 5 mmHg. Aorta The aortic root size at the sinus of Valsalva is normal. Left Ventricular Outflow Tract Name Value Normal LVOT 2D LVOT Diameter 2.0 cm LVOT Doppler LVOT Peak Gradient 6 mmHg LVOT Mean Gradient 4 mmHg LVOT VTI 25 cm LVOT VTI/AV VTI Ratio 0.7 LVOT Stroke Volume 81 ml LVOT CO
== END 2023-09-11 09:46 | disposition home or self-care (01) ==
PROVIDERS: PCP Family Medicine; Visit Provider Internal Medicine Cardiovascular Disease
DX: R93.1 Abnormal findings on diagnostic imaging of heart and coronary circulation (principal); I42.1 Obstructive hypertrophic cardiomyopathy; I07.1 Rheumatic tricuspid insufficiency
CPT/HCPCS: 93306

== ENCOUNTER 2024-04-23 10:18 | Outpatient (CLI) | payer MEDICARE, SELFPAY ==
--- NOTE | ~2024-04-23 | XR_ITS ---
Left Shoulder Technique: AP and scapular Y views were obtained. Clinical History: Pain Findings: No fracture or dislocation is seen. There is advanced degenerative change of the glenohumer al joint, joint space narrowing, sclerosis, and mild osteophyte formation. AC joint intact.. Soft tis sues are unremarkable. Impression: Advanced glenohumeral joint osteoarthritis. Reviewed, dictated and finalized at location M. Impression: Advanced glenohumeral joint osteoarthritis.
--- NOTE | 2024-04-23 10:46 | ECG_ITS ---
Test Date: 2024-04-23 10:56:26 Measurements Intervals [place] Rate: 96 P: 55 OH: 208 QRS: 38 QRSD: 127 T: -6 QT: 361 QTc: 456 Interpretive Statements SINUS RHYTHM WITH SINUS ARRHYTHMIA RIGHT BUNDLE BRANCH BLOCK [120+ ms QRS DURATION, UPRIGHT V1, 40+ ms S IN I/aVL/V4/V5/V6] NONSPECIFIC T-WAVE ABNORMALITY ABNORMAL ECG WARNING: DATA QUALITY MAY AFFECT INTERPRETATION No previous ECG available for comparison Electronically Signed On 04-23-2024 16:07:37 CDT by Callum Buenrostro M.D.
== END 2024-04-23 10:19 | disposition home or self-care (01) ==
PROVIDERS: PCP Family Medicine; Visit Provider Orthopaedic Surgery
DX: Z01.818 Encounter for other preprocedural examination (principal); M19.012 Primary osteoarthritis, left shoulder; I10 Essential (primary) hypertension; I45.10 Unspecified right bundle-branch block; R94.31 Abnormal electrocardiogram [ECG] [EKG]
CPT/HCPCS: 73030; 93005

== ENCOUNTER 2024-06-18 08:37 | Outpatient (CLI) | payer MEDICARE, SELFPAY ==
--- NOTE | 2024-06-18 | EST_ITS ---
Patient Info Name: Amberly Faust Age: 83 years : 1940 Gender: Female Ht: 61 in Wt: 185 lbs BSA: 1.94 m2 Exam Date: 06/18/2024 9:27 AM Exam Location: [facility] Patient Status: Outpatient Admit Date: 06/18/2024 Staff Ordering Physician: Rhys Arango DO Attending Provider: Rhys Arango DO Exercise Technologist: Alyssa De León RDCS Exercise Physician: Rhys Arango DO Exam Type: CA stress shai w NM Study Info A regadenoson stress test was performed. Summary 1. 1. Negative lexiscan stress test for ischemic ST changes by ECG criteria. 2. 2. Baseline hypertension. 3. 3. Nuclear scan to follow and will be reported separately. Please correlate with it. 4. 4. Patient informed of the above results. Protocol: Lexiscan Stress ECG Details Stage: REST Duration (min): 1 min : 3 sec HR (bpm): 96 SBP (mmHg): 142 DBP (mmHg): 77 Stage: REST Duration (min): 6 min : 39 sec HR (bpm): 95 SBP (mmHg): 142 DBP (mmHg): 77 Stage: STAGE 1 Duration (min): 1 min : 0 sec HR (bpm): 100 SBP (mmHg): 159 DBP (mmHg): 65 Stage: RECOVERY Duration (min): 1 min : 0 sec HR (bpm): 99 SBP (mmHg): 148 DBP (mmHg): 68 Stage: RECOVERY Duration (min): 2 min : 0 sec HR (bpm): 98 SBP (mmHg): 148 DBP (mmHg): 68 Stage: RECOVERY Duration (min): 3 min : 0 sec HR (bpm): 97 SBP (mmHg): 143 DBP (mmHg): 70 Stage: RECOVERY Duration (min): 3 min : 2 sec HR (bpm): 98 SBP (mmHg): 143 DBP (mmHg): 70 Rest HR: 95 bpm Peak HR: 102 bpm Rest Sys BP: 142 mmHg Peak Sys BP: 159 mmHg Max Pred HR: 139 bpm % Max Pred HR: 73 % Target HR: 118 bpm Max RPP: 16,218 bpm*mmHg Termination Reason: Completed protocol Cardiac Symptoms: Shortness of breath Total Time: 1 min : 0 sec Rest [place] BP: 77 mmHg Peak [place] BP: 65 mmHg Total Dose: 0.4 mg Resting ECG Sinus rhythm. Stress ECG No ST changes. Arrhythmias None. Report Signatures
--- NOTE | ~2024-06-18 | NM_ITS ---
EXAMINATION: NM shai stress w perfusion DATE: 06/18/2024 11:54 INDICATION: Abnormal electrocardiogram. Shortness of breath. TECHNIQUE: Rest images were obtained following intravenous administration of 10 mCi Tc99m tetrofosmin (Myoview). The patient was infused intravenously with Lexiscan (regadenoson). Then, 33 mCi Tc99m tet rofosmin (Myoview) was administered intravenously, and stress images were obtained. Data was reconstr ucted into short axis and horizontal and vertical long axis SPECT images. Gated SPECT images were als o obtained. COMPARISON: Myocardial perfusion imaging 08/05/2015 FINDINGS: There is no definite reversible or fixed perfusion abnormality to suggest ischemia or infar ction. There is no segmental wall motion abnormality. Left ventricular ejection fraction measures > 70%. IMPRESSION: 1. No definite ischemia or infarct. 2. Normal left ventricular ejection fraction measuring >70%. Reviewed, dictated and finalized at location A. TING WORKER
== END 2024-06-18 08:38 | disposition home or self-care (01) ==
PROVIDERS: PCP Family Medicine; Visit Provider Internal Medicine Cardiovascular Disease
DX: Z01.810 Encounter for preprocedural cardiovascular examination (principal); R06.02 Shortness of breath; I10 Essential (primary) hypertension
CPT/HCPCS: 78452; 93017; A9502; J2785

== ENCOUNTER 2024-06-26 12:42 | Outpatient (CLI) | payer MEDICARE, SELFPAY ==
--- NOTE | ~2024-06-26 | CT_ITS ---
EXAMINATION: CT shoulder LT wo con DATE: 06/26/2024 14:42 INDICATION: Other specific arthropathies, not elsewhere classified. TECHNIQUE: Computed tomography (CT) of the left shoulder was performed without intravenous contrast. Automated exposure control and iterative reconstruction technique were employed. The dose-length prod uct was 369.71 mGy-cm. COMPARISON: Left shoulder radiographs 04/23/2024 FINDINGS: Alignment is normal. No fracture. There is severe osteoarthritis of acromioclavicular joint . There is advanced glenohumeral joint osteoarthritis including bone volume loss of the glenoid. Ther e is narrowing of the subacromial space with remodeling of the undersurface of the acromion, consiste nt with chronic rotator cuff tear with cuff arthropathy. There is a large glenohumeral joint effusion . There is volume loss and moderate fatty atrophy of supraspinatus, infraspinatus, and superior subsc apularis muscle bellies. IMPRESSION: 1. Advanced glenohumeral joint osteoarthritis with glenoid bone volume loss. 2. Severe acromioclavicular joint osteoarthritis 3. Chronic rotator cuff tear with cuff arthropathy. Reviewed, dictated and finalized at location A. NHOUSE STAFF
--- OUTSIDE RECORDS SUMMARY | 2024-06-26 13:09 | XMS_ITS | Continuity of Care Document ---
Author Organization [facility] Address [address] [place] [address] [address] [place] [address] Phone Care Team Providers Care Clinical Nursing Intern Name Role Phone Santiago OD, Krishna Unavailable Unavailable Procedures Procedure Date Eye Exam & Treatment No Script Refraction Eye Exam & Treatment Refraction Advance Directives Directive Yes / No Effective Date File Name No Information Encounters Encounter Description Practice Location Reason(s) For Visit Diagnoses Date Provider Providers Copied on Encounter [facility], [address] [place] [address] [address], [place], [place], [id number], tel:[phone] [facility] No Information 8-200 9 Santiago OD Krishna. [address] , [address], [place], [place], [facility], [place]. tel:[phone] [facility], [address] [place] [address] [address], [place], [place], [id number], tel:[phone] [facility] No Information 0-200 8 Santiago OD Krishna. [address] , [address], [place], [address], [place]. tel:[phone] Family History Family Member Type Diagnosis Age At Onset No Information Payers Payer name Insurance type Covered libertarian ID Authoriza tion(s) [place] [id number] Social History Type Description Quantity Date Captured Comments Sex Female Smoking Status No Information Chief Complaint And Reason For Visit No Information Reason For Referral Reason For Referral No Information History Of Present Illness Encounter Date Complaint History Of Prese nt Illness No Information Functional Status Date Functional Assessmen t No Information Instructions Date Instruction Additional Infor mation No Information Assessments Type Assessment Date No Information Patient Care Teams Name Effective Dates (start - stop) Status Members No Information
== END 2024-06-26 12:43 | disposition home or self-care (01) ==
PROVIDERS: PCP Family Medicine; Visit Provider Orthopaedic Surgery
DX: M19.012 Primary osteoarthritis, left shoulder (principal); M85.88 Other specified disorders of bone density and structure, other site; M75.102 Unspecified rotator cuff tear or rupture of left shoulder, not specified as traumatic; G89.29 Other chronic pain
CPT/HCPCS: 73200

== ENCOUNTER 2024-08-24 11:53 | Outpatient (CLI) | payer MEDICARE, SELFPAY ==
--- OUTSIDE RECORDS SUMMARY | 2024-08-24 12:26 | XMS_ITS | Referral Summary ---
Author Organization [facility] Address [address] [place] [address] Care Team Providers Care Sugar Presser Name Role Phone Vanesa Carpenter MD Primary Care Provider [phone] Source Comments [facility],non-owned Affiliates and Associated Physician Practices is amultiple site organization consisting of ambulatory clinics and hospital sitesin [place], [place] and [place]. This disclosure is being madepursuant to the Care Everywhere program and may not contain all information available regarding this patient. Last updated 18.[facility] Allergies No known active allergies Medications * Be aware that medications may not be up to date on this document. Alwaysverify current medications with the patient. Medication Sig Dispensed Refills Start Date End Date Status quinapril (ACCUPRIL) 20 MG tablet Take 20 mg by mouth once daily Active DULoxetine (CYMBALTA) 20 MG capsule Take 20 mg by mouth once daily Active Vitamin D, Cholecalciferol, 1000 UNITS CAPS Take 1,000 Units by mouth once daily Active LYRICA 75 MG capsule Take 1 Cap by mouth 2 times daily 04/20/2016 Active traMADol (ULTRAM) 50 MG tablet Take 1 Tab by mouth as needed 04/20/2016 Active diclofenac sodium EC (VOLTAREN) 50 MG tablet Take 50 mg by mouth 2 times daily Active Active Problems Problem Noted Date Diagnosed Date Spinal stenosis of lumbar region 03/08/2016 HTN (hypertension) 03/08/2016 Depression 03/08/2016 Social History Tobacco Use Types Packs/Day Years Used Date Smoking Tobacco: Former Cigarettes Q uit: 03/07/1966 Smokeless Tobacco: Never Alcohol Use Standard Drinks/Week Comments Yes 0 (1 standard drink = 0.6 oz pur e alcohol) Rare glass wine Sex and Gender Information Value Date Recorded Sex Assigned at Not on file Gender Identity Not on file Sexual Orientation Not on file Last Filed Vital Signs Vital Sign Reading Time Taken Comments Blood Pressure 130/84 03/21/2016 11:54 AM CDT Pulse 85 03/21/2016 11:54 AM CDT Temperature 37 C (98.6 F) 03/09/2016 11:18 AM CDT Respiratory Rate 18 03/09/2016 11:18 AM CDT Oxygen Saturation 92% 03/09/2016 11:18 AM CDT Inhaled Oxygen Concentration - - Weight 73 kg (161 lb) 06/06/2016 11:34 AM GUEST RELATIONS ASSOCIATE Height 157.5 cm (5' 2 ) 06/06/2016 11:34 AM GUEST RELATIONS ASSOCIATE Body Mass Index 29.45 06/06/2016 11:34 AM GUEST RELATIONS ASSOCIATE Functional Status Functional Status Response Date of Assess ment Is person deaf or have serious hearing difficult y? No 03/08/2016 Is person blind or have serious difficulty seein g? No 03/08/2016 Does person have serious dif ficulty walking/climbing stairs? Yes 03/08/2016 Does person have difficulty dressing/bathing? No 03/08/2016 Does person have difficulty doing errands alone? No 03/08/2016 Cognitive Status Response Date of Assessm ent Does person have difficulty concentrating/remembering/making decisions? No 03/08/2016 Plan of Treatment Not on file Medical Devices Implanted Type Area Coning Machine Operator Device Identifier Shelf Expiration Date Model / Serial / Lot 10 Ml Floseal Implanted:Qty: 1 on 03/08/2016 by Krishna Guerra DO at [facility] Spine Lumbar [employer] 06/13/2017 [id number] / / [id number] Advance Directives Documents on File Type Date Recorded Patient Spa Assistant Manager Expl anation Adv Directive/Living Will/POA 03/20/2016 9:55 PM * Full Code (Latest Code Status on File) Date Activated Date Inactivated Comments 03/08/2016 11:45 AM 03/09/2016 4:43 PM Care Teams Sugar Presser Relationship Specialty Start Date End Date Vanesa Carpenter MD [address] [place] [address] PCP - General Family Medicine 02/13/16
--- OUTSIDE RECORDS SUMMARY | 2024-08-24 12:26 | XMS_ITS | Clinical Summary ---
Author Organization [facility] Address [address] [place] [address] Care Team Providers Care Pinion Polisher Name Role Phone Vanesa Carpenter MD Primary Care Provider [phone] Source Comments [facility],non-owned Affiliates and Associated Physician Practices is amultiple site organization consisting of ambulatory clinics and hospital sitesin [place], [place], [place] and [place]. This disclosure is being madepursuant to the Care Everywhere program and may not contain all information available regarding this patient. Last updated 18.[facility] Allergies No known active allergies Medications * [...] region 03/08/2016 HTN (hypertension) 03/08/2016 Depression 03/08/2016 Family History Relation Name Status Comments Father (Age 87) Mother (Age 85) Social History Tobacco Use Types Packs/Day Years [...] 73 kg (161 lb) 06/06/2016 11:34 AM ELECTRICAL CAD DESIGNER Height 157.5 cm (5' 2 ) 06/06/2016 11:34 AM ELECTRICAL CAD DESIGNER Body Mass Index 29.45 06/06/2016 11:34 AM ELECTRICAL CAD DESIGNER Plan of Treatment Health Maintenance Due Date Last Done Comments BONE DENSITY TESTING 1942 MEDICARE AWV 12 MONTHS 1942 DTAP/TDAP/TD VACCINES (1 - Tdap) 1961 PNEUMOCOCCAL VACCINE 50+ (1 of 1 - PCV) 1992 ZOSTER VACCINE (1 of 2) 1992 Respiratory Syncytial Virus (RSV) Vaccine Pt: or over 60 yrs (1 - 1-dose 75+ series) 2017 COVID-19 VACCINE ( - 2023-2 5 season) 2024 INFLUENZA VACCINE (#1) 2024 DEPRESSION SCREENING 07/15/2024 HEPATITIS B VACCINE Aged Out No longe r eligible based on patient's age to complete this topic HIB VACCINE Aged Out No longer eligi ble based on patient's age to complete this topic HPV VACCINE Aged Out No longer eligi ble based on patient's age to complete this topic MENINGOCOCCAL (Group B) VACCINE Aged Out No longer eligible based on patient's age to complete this topic MENINGOCOCCAL VACCINE Aged Out No claudia shira eligible based on patient's age to complete this topic Medical Devices Implanted Type Area Supervisor Jewelry Department Device Identifier Shelf Expiration Date Model / Serial / Lot 10 Ml Floseal Implanted:Qty: 1 on 03/08/2016 by [facility] Spine Lumbar [employer] 06/13/2017 [id number] / / [id number] Advance Directives Documents on File Type Date Recorded Patient [place] Expl anation Adv Directive/Living Will/POA 03/20/2016 9:55 PM * Full Code (Latest Code Status on File) Date Activated Date Inactivated Comments 03/08/2016 11:45 AM 03/09/2016 4:43 PM Care Teams Pinion Polisher Relationship Specialty Start Date End Date Vanesa Carpenter MD [address] [place] [address] PCP - General Family Medicine 02/13/16
--- OUTSIDE RECORDS SUMMARY | 2024-08-24 12:26 | XMS_ITS | Continuity of Care Document ---
Author Organization [facility] Address [address] [place] [address] [address] [place] [address] Phone Care Team Providers Care Rv Repairer Name Role Phone Santiago OD, Krishna Unavailable Unavailable Procedures Procedure Date Eye Exam & Treatment No Script Refraction Eye Exam & Treatment Refraction Advance Directives Directive Yes / No Effective Date File Name No Information Encounters Encounter Description Practice Location Reason(s) For Visit Diagnoses Date Provider Providers Copied on Encounter [facility], [address] [place] [address] [address], [place], [place], [id number], tel:[phone] [address] [facility] No Information 8-200 9 Santiago OD Krishna. [address] , [address], [place], [place], [facility], [place]. tel:[phone] [facility], [address] [place] [address] [address], [place], [place], [id number], tel:[phone] [facility] No Information 0-200 8 Santiago OD Krishna. [address] , [address], [place], [address], [place]. tel:[phone] Family History Family Member Type Diagnosis Age At Onset No Information Payers Payer name Insurance type Covered constitution party ID Authoriza tion(s) [place] [id number] Social History Type Description Quantity Date Captured [...]
--- OUTSIDE RECORDS SUMMARY | 2024-08-24 12:26 | XMS_ITS | Patient Health Summary ---
Author Organization [facility] Address [address] [place] [address] Care Team Providers Care Stunner Name Role Phone Vanesa Carpenter MD Primary Care Provider [phone] Note from [facility],non-owned Affiliates and Associated Physician Practices is amultiple site organization consisting of ambulatory clinics and hospital sitesin [place], [place], [place] and [place]. This disclosure is being madepursuant to the Care Everywhere program and may not contain all information available regarding this patient. Last updated 18.[facility] Allergies No known active allergies Medications * Be aware that medications may not be up to date on this document. Alwaysverify current medications with the patient. * quinapril (ACCUPRIL) 20 MG tablet Take 20 mg by mouth once daily * DULoxetine (CYMBALTA) 20 MG capsule Take 20 mg by mouth once daily * Vitamin D, Cholecalciferol, 1000 UNITS CAPS Take 1,000 Units by mouth once daily * LYRICA 75 MG capsule(Started 04/20/2016) Take 1 Cap by mouth 2 times daily * traMADol (ULTRAM) 50 MG tablet(Started 04/20/2016) Take 1 Tab by mouth as needed * diclofenac sodium EC (VOLTAREN) 50 MG tablet Take 50 mg by mouth 2 times daily Active Problems Problem Noted Date Diagnosed Date [...] 73 kg (161 lb) 06/06/2016 11:34 AM PROJECT MANAGER/TEAM COACH Height 157.5 cm (5' 2 ) 06/06/2016 11:34 AM PROJECT MANAGER/TEAM COACH Body Mass Index 29.45 06/06/2016 11:34 AM PROJECT MANAGER/TEAM COACH Medical Devices Implanted Type Area Computer Network And Systems Engineer Device Identifier Shelf Expiration Date Model / Serial / Lot 10 Ml Floseal Implanted:Qty: 1 on 03/08/2016 by Krishna Guerra DO at [facility] Lumbar [employer] 06/13/2017 [id number] / / [id number] Procedures * RAD OUTSIDE IMG IMPORT(Performed 05/03/2016) Performed for Pain * CT HEAD WO CONTRAST(Performed 04/30/2016) Performed for S/P lumbar laminectomy * CARDIAC RHYTHM STRIP ORDER(Performed 03/20/2016) * PT EVAL AND TREAT(Performed 03/08/2016) * FL MLEISSA SURGERY LESS 60 MIN(Performed 03/08/2016) Performed for Acute back pain, unspecified back location, unspecified back pain laterality * DECOMPRESSION FUSION SPINAL POSTERIOR(Performed 03/08/2016) Performed for Lumbar spinal stenosis, HNP (herniated nucleus pulposus), lumbar * RAD OUTSIDE IMG IMPORT(Performed 02/28/2016) Performed for Pain * RAD OUTSIDE IMG IMPORT(Performed 02/22/2016) Performed for Pain * IMAGING/RADIOLOGY/XRAY RESULTS ORDER(Performed 05/16/2015) Results * RAD OUTSIDE IMG IMPORT (05/03/2016 10:11 AM CDT) Only the most recent of3 resultswithin the time period is included. Anatomical Region Laterality Modality Radiographic Melody ging Narrative 05/04/2016 9:04 AM CDT OUTSIDE IMAGES SUCCESSFULLY IMPORTED Krishna Guerra DO DIAGNOSTIC IMAGING O RDERABLES * CT HEAD NON CONTRAST (04/30/2016) Anatomical Region Laterality Modality Head Other Krishna Guerra DO CT ORDERABLES * CARDIAC RHYTHM STRIP ORDER (03/20/2016 9:57 PM CDT) Narrative 03/20/2016 9:57 PM CDT Ordered by an unspecified provider. Scanned Document CARDIAC SERVICES ORD ERABLES * FL MELISSA SURGERY LESS 60 MIN (03/08/2016 10:06 AM CDT) Anatomical Region Laterality Modality Radiographic Melody ging 03/08/2016 10:1 0 AM CDT Narrative 03/08/2016 10:19 AM CDT Fluoroscopy was provided. A radiologist was not present. Procedure Note Isaac Ba MD - 03/08/2016 Fluoroscopy was provided. A radiologist was not present. Krishna Guerra DO FLUOROSCOPY ORDERABL ES * IMAGING/RADIOLOGY/XRAY RESULTS ORDER (05/16/2015) Anatomical Region Laterality Modality Other Vanesa Carpenter MD IMAGING Care Teams Stunner Relationship Specialty Start Date End Date Vanesa Carpenter MD [address] [place] [address] PCP - General Family Medicine 02/13/16
[2024-08-24 13:36] LABS: Basophils Percent Auto 0.6 % (0.2-1.2); Eosinophils Absolute Auto 0.2 K/mm3 (0-0.3); Eosinophils Percent Auto 2.1 % (0-4.4); Hematocrit 40.6 % (37.0-47.0); Hemoglobin 12.5 g/dL (12.0-15.0); Immature Granulocyte Absolute 0.02 K/mm3 (0.00-0.031); Immature Granulocyte Percent A 0.3 % (0-0.5); Lymphocytes Absolute Auto 1.38 K/mm3 (0.9-3.2); Lymphocytes Percent Auto 19.5 % (18.3-44.2); Mean Corpuscular HGB Conc 30.8 g/dl (32-36); Mean Corpuscular Hemoglobin 29.4 pg (26-34); Mean Corpuscular Volume 95.5 fl (80-100); Mean Platelet Volume 9.8 fl (7.4-10.4); Monocytes Absolute Auto 0.8 K/mm3 (0.1-0.6); Neutrophils Absolute Auto 4.7 K/mm3 (1.3-6.7); Neutrophils Percent Auto 66.5 % (45.5-73.1); Platelet Count Result 264 k/mm3 (150-375); Red Blood Count 4.25 M/mm3 (4.2-5.4); White Blood Count 7.1 K/mm3 (4.5-10.0)
[2024-08-24 14:49] LABS: MRSA (PCR) NOT DETECTED (NOT DETECTE)
== END 2024-08-24 11:54 | disposition home or self-care (01) ==
LOC: ANHSURGERY 12:00
PROVIDERS: PCP Family Medicine; Visit Provider Orthopaedic Surgery
DX: Z01.812 Encounter for preprocedural laboratory examination (principal); M19.012 Primary osteoarthritis, left shoulder
CPT/HCPCS: 36415; 85025; 87641

== ENCOUNTER 2024-09-09 09:22 | Outpatient (CLI) | payer MEDICARE, SELFPAY ==
--- NOTE | ~2024-09-09 | XR_ITS ---
Clinical Indication: Cough PA and lateral views of the chest: Comparison: 09/03/2022 Findings: The lungs are clear, without evidence of focal consolidation or pleural effusion. 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 Cardiomediastinal silhouette is within normal limits. Bones and soft tissues are unremarkable. Impression: Clear lungs. Stable eventration of the right hemidiaphragm. Reviewed, dictated and finalized at location M. [facility] SITTER Impression: Clear lungs. Stable eventration of the right hemidiaphragm.
== END 2024-09-09 09:23 | disposition home or self-care (01) ==
PROVIDERS: PCP Family Medicine; Visit Provider Family Medicine
DX: J98.6 Disorders of diaphragm (principal); R05.9 Cough, unspecified
CPT/HCPCS: 71046

== ENCOUNTER 2024-12-14 08:15 | Outpatient (CLI) | payer MEDICARE, SELFPAY ==
--- NOTE | ~2024-12-14 | MR_ITS ---
MRI of the lumbar spine Clinical History: Cord compression Technique: Axial T2-weighted images, and sagittal T1-weighted, T2-weighted, and T2 fat-sat images wer e acquired. COMPARISON: 10/19/2021 Findings: No acute fracture seen. There is 5 mm retrolisthesis of L1 over L2. There is 5 mm retrolist hesis of L2 over L3. There is 8mm anterolisthesis of L4 over L5. There is 12 mm anterolisthesis of L5 over S1. There are reactive marrow signal changes in the T12, L1, L2 vertebral body due to underlyin g degenerative disc disease. At L1-L2, there is severe degenerative disc narrowing. There is disc bulge with facet arthropathy, wi th moderate to severe spinal canal stenosis/thecal sac compression, and severe bilateral neural katia inal narrowing. At L2-L3, there is advanced degenerative disc narrowing. There is disc bulge diffusely with moderate facet arthropathy. There is moderate central canal stenosis/thecal sac compression. There is severe b ilateral neural foraminal narrowing. At L3-L4, there is advanced degenerative disc narrowing with diffuse disc bulge and severe facet arth ropathy. There is no cruz central canal stenosis. There is severe bilateral neural foraminal narrowi ng. At L4-L5, there is diffuse disc bulge/disc uncovering with severe facet arthropathy and moderate to s evere spinal canal stenosis. There is severe bilateral neural foraminal narrowing. At L5-S1, there is fusion across the space. No definite canal stenosis. There is severe left neural f oraminal narrowing and moderate right neural foraminal narrowing. Paravertebral soft tissues are unremarkable. Impression: Severe degenerative spondylosis throughout the lumbar spine with multilevel spinal canal stenosis and neural foraminal narrowing. 5 mm retrolisthesis of L1 over L2. 5 mm retrolisthesis of L2 over L3. 8 mm anterolisthesis of L4 over L5. 12 mm anterolisthesis of L5 over S1. Reviewed, dictated and finalized at location . Impression: Severe degenerative spondylosis throughout the lumbar spine with multilevel spi nal canal stenosis and neural foraminal narrowing. 5 mm retrolisthesis of L1 over L2. 5 mm retrolisthesis of L2 over L3. 8 mm anterolisthesis of L4 over L5. 12 mm anterolisthesis of L5 over S1.
--- NOTE | ~2024-12-14 | MR_ITS ---
MRI of the thoracic spine Clinical History: Cord compression Technique: Axial T2-weighted and gradient images, and sagittal T1-weighted, T2-weighted, and STIR augusta ges were acquired. Findings: There is no acute fracture or subluxation in the thoracic spine. There is mild chronic comp ression deformity of T12. There is probable mild kyphosis. No suspicious bone marrow signal abnormali ty seen. There is moderate to advanced degenerative disc change from T5 through T12. There is advanced degener ative disc narrowing at T1-T2. There is a small central disc extrusion at T5-T6, which mildly flatten s the ventral cord. There are additional central disc protrusions at T6-T7 and T7-T8. There is disc o steophyte complex and facet arthropathy at T8-T9, with mild canal stenosis and flattening the ventral cord. There is disc bulge and facet arthropathy at T9-T10 with mild canal stenosis. There is disc os sify competent facet arthropathy with moderate canal stenosis and mild cord compression at T11-T12. T here is disc osteophyte complex and facet arthropathy at T12-L1 with moderate canal stenosis. There i s advanced bilateral neural foraminal narrowing from T8 through L1. No abnormal signal seen in the spinal cord. Paravertebral soft tissues are unremarkable. Impression: Severe degenerative spondylosis of the thoracic spine, especially at the mid to lower aspect from T5 through T12, as detailed above. Mild chronic compression deformity of T12. Reviewed, dictated and finalized at [facility]. Impression: Severe degenerative spondylosis of the thoracic spine, especially at the mid to lower aspect from T5 through T12, as detailed above. Mild chronic compression deformity of T12.
--- NOTE | ~2024-12-14 | CT_ITS ---
Noncontrast CT scan of the lumbar spine CLINICAL HISTORY: Cord compression TECHNIQUE: Axial noncontrast imaging of the lumbar spine was performed. Sagittal and coronal reformat yadira images were constructed. Dose reduction technique was used on this scan by utilizing automated ex posure control and iterative reconstruction technique. The dose-length product (DLP) was 754.63 mGy-c m. Correlation made with MR dated 12/14/2024. FINDINGS: There is mild extra scoliosis of the lumbar spine. There is 5 mm retrolisthesis of L1 over L2. There is 3 mm retrolisthesis of L2 over L3. There is 9 mm anterolisthesis of L4 over L5. There is 12 mm anterolisthesis of L5 over S1. At L1-L2, there is severe degenerative disc narrowing. There is mild disc bulge with moderate facet a rthropathy. No cruz central canal stenosis. There is severe bilateral neural foraminal narrowing. At L2-L3, there is severe degenerative distended. There is disc bulge and advanced facet arthropathy. There is probable moderate spinal canal stenosis/thecal sac compression. There is severe bilateral n eural foraminal narrowing. At L3-L4, there is advanced degenerative disc narrowing. There is disc bulge and advanced facet arthr opathy. There is moderate to severe spinal canal stenosis/thecal sac compression. There is severe rig ht neural foraminal narrowing, and moderate to severe left neural foraminal narrowing. At L4-L5, there is disc bulge/uncovering with severe facet arthropathy. Probable mild to moderate padilla tral canal stenosis. There is severe bilateral neural foraminal compromise. At L5-S1, there is severe degenerative disc narrowing. There is disc bulge/uncovering with severe fac et arthropathy. There is probable moderate to advanced central canal stenosis. There is severe bilate ral neural foraminal narrowing. Paravertebral soft tissues are unremarkable. Impression: Severe degenerative spondylosis of the lumbar spine, as detailed above. 5 mm retrolisthesis of L1 over L2. 3 mm retrolisthesis of L2 over L3. 9 mm anterolisthesis of L4 over L5. 12 mm anterolisthesis of L5 over S1. Reviewed, dictated and finalized at location M. Impression: Severe degenerative spondylosis of the lumbar spine, as detailed above. 5 mm retrolisthesis of L1 over L2. 3 mm retrolisthesis of L2 over L3. 9 mm anterolisthesis of L4 over L5. 12 mm anterolisthesis of L5 over S1.
--- NOTE | ~2024-12-14 | MR_ITS ---
MRI of the cervical spine Clinical History: Cord compression Technique: Axial T2-weighted and gradient images, and sagittal T1-weighted, T2-weighted, and STIR augusta ges were acquired. Findings: There is no fracture. There is 3 mm anterolisthesis of C4 over C5. No bone marrow signal ab normality seen. At C2-C3, there is disc osteophyte complex and mild facet arthropathy. Possible minimal left neural f oraminal narrowing. Right neural foramen preserved. No canal stenosis or cord compression. At C3-C4, there is disc osteophyte complex with bilateral neural foraminal narrowing, right worse mary n left. There is mild canal stenosis without cruz cord compression. At C4-C5, there is disc osteophyte complex and bilateral facet arthropathy, right worse than left. Th ere is right neural foraminal narrowing. Mild canal stenosis without cruz cord compression. Possible minimal left neural foraminal narrowing. At C5-C6, there is advanced degenerative disc narrowing. Disc osteophyte complex results in mild kinjal l stenosis and mild ventral cord compression. There is bilateral neural foraminal narrowing with bila teral facet arthropathy, right worse than left. At C6-C7, there is advanced degenerative disc narrowing. There is disc ossify compost with mild archana ening of the ventral cord. Neural foramina are relatively well-preserved. No abnormal signal seen in the spinal cord. Paravertebral soft tissues are unremarkable. Impression: Advanced degenerative spondylosis, as detailed above. 3 mm anterolisthesis of C4 over C5. Reviewed, dictated and finalized at [facility]. Impression: Advanced degenerative spondylosis, as detailed above. 3 mm anterolisthesis of C4 over C5.
== END 2024-12-14 08:16 | disposition home or self-care (01) ==
LOC: MICIMG 08:17
DX: G95.20 Unspecified cord compression (principal); M54.50 Low back pain, unspecified
CPT/HCPCS: 72131; 72141; 72146; 72148

== ENCOUNTER 2025-05-18 11:23 | Outpatient (CLI) | payer MEDICARE, SELFPAY ==
--- NOTE | ~2025-05-18 | MM_ITS ---
EXAMINATION: MM screening purvi BI w kacey HISTORY: Screening TECHNIQUE: Craniocaudal and mediolateral oblique 3-D tomosynthesis images were obtained and synthetic 2-D images were generated. CAD analysis was submitted and interpreted. COMPARISON: Comparison to multiple prior studies sequentially, with oldest reviewed study dated , 05/13/2012 BREAST PARENCHYMAL COMPOSITION: The breasts are almost entirely fatty. FINDINGS: There is no evidence of suspicious mass, calcification, or architectural distortion to suggest malignancy in either breast. IMPRESSION: 1. No mammographic evidence of malignancy. 2. Recommend routine screening mammography in one year. BI-RADS Category 1: Negative Reviewed, dictated and finalized at location B. ER HELPER
== END 2025-05-18 11:24 | disposition home or self-care (01) ==
LOC: MICIMG 11:23
PROVIDERS: PCP Student in an Organized Health Care Education/Training Program; Visit Provider Family Medicine
DX: Z12.31 Encounter for screening mammogram for malignant neoplasm of breast (principal)
CPT/HCPCS: 77063; 77067